=== PATIENT | male | born 1945 | race Caucasian/White ===

== ENCOUNTER → 2025-08-28 | Outpatient (BNVA) | payer MEDICARE, MEDICAID, SELFPAY | END | disposition home or self-care (01) | PROVIDERS: Visit Provider Urology | DX: C61 Malignant neoplasm of prostate (principal); I12.9 Hypertensive chronic kidney disease with stage 1 through stage 4 chronic kidney disease, or unspecified chronic kidney disease; N18.9 Chronic kidney disease, unspecified; Z90.79 Acquired absence of other genital organ(s); Z95.0 Presence of cardiac pacemaker | CPT/HCPCS: 81003; 99212; G0463 ==